=== PATIENT | female | born 1985 | race Caucasian/White ===

== ENCOUNTER 2020-12-04 13:09 | Emergency (ER) | payer SELFPAY ==
[~2020-12-04] VITALS: Ht 165.1 cm; Wt 81.8 kg
[2020-12-04 13:14] VITALS: BP 104/57
[2020-12-04] MEDS ORDERED: ASPI1CHW3 PO (13:57)
== END 2020-12-04 18:25 | disposition left against medical advice (07) ==
LOC: M ED 13:09
DX: Z53.29 Procedure and treatment not carried out because of patient's decision for other reasons (principal)